=== PATIENT | male | born 1935 | race Caucasian/White ===

== ENCOUNTER 2017-11-13 18:11 | Emergency (ER) | payer MEDICARE, OTHER ==
[2017-11-13 19:52] VITALS: BP 191/66
[2017-11-13] MEDS ORDERED: Sodium Phosphate,Monobasic/Sodium Phosphate,Dibasic Enema 133 ML Bottle RECTAL ONE (20:39)
--- NOTE | 2017-11-13 20:52 | EDM.PDOC ---
ED HPI GENERAL MEDICAL PROBLEM - General Chief Complaint: General Stated Complaint: CONSTIPATED Time Seen by Provider: 11/13/17 20:20 Source of Information: Reports: Patient, Family (Daughter), Old Records, RN Notes Reviewed History Limitations: Reports: No Limitations - History of Present Illness INITIAL COMMENTS - FREE TEXT/NARRATIVE: Brought by daughter Chief complaint Abdominal pain and constipation History of present illness 81-year-old male who lives independently, had some abdominal pain about 3 weeks ago, thought to be "food poisoning" that started several hours after eating a cardona breakfast sandwich from a fast food restaurant. Was seen in the office for this and again more recently, had some recurrence of abdominal pain and was treated with antibiotics for something that felt like a "touch of food poisoning" according to the patient. He is almost complete his antibiotics. Last bowel movement that was normal was 2 days ago and since then he's only been able to pass small amounts of hard stool. He feels bloated feels a need to pass stool but is only able to pass small amounts. No nausea or vomiting He still able to eat and did have breakfast and lunch today. Does feel a bit bloated Feels like he has to urinate as well and is unable to pass more than a small amounts of urine Bladder scan done by nursing staff here did not show any retained urine. No history of ongoing constipation Did use a suppository at home in the afternoon and use magnesium citrate yesterday neither with any benefit. Lower Abdomen Pain Score (Numeric/FACES): 10 - Related Data Allergies Allergy/AdvReac Type Severity Reaction Status Date / Time No Known Allergies Allergy Verified 09/27/16 12:05 Home Meds: Home Meds Candesartan [Atacand] 32 mg PO DAILY 05/24/15 [History] Clopidogrel Bisulfate [Clopidogrel] 75 mg PO DAILY 05/24/15 [History] Doxazosin Mesylate [Cardura] 8 mg PO DAILY 05/24/15 [History] Furosemide [Lasix] 20 mg PO ASDIRECTED 05/24/15 [History] Insulin Glarg,Human.Rec.Analog [Lantus Solostar] 24 unit SQ BEDTIME 05/24/15 [ History] Insulin Lispro [Humalog] 100 unit SQ BID 05/24/15 [History] Metoprolol Succinate [Toprol Xl] 50 mg PO DAILY 05/24/15 [History] Nitroglycerin [Nitrostat] 0.4 mg SL ASDIRECTED PRN 05/24/15 [History] hydrALAZINE HCl [Hydralazine HCl] 25 mg PO TID 05/24/15 [History] Aspirin [Adult Low Dose Aspirin EC] 81 mg PO DAILY 05/04/16 [History] Azithromycin [Zithromax] 250 mg PO ASDIRECTED 09/26/16 [History] Allopurinol [Zyloprim] 300 mg PO DAILY 11/13/17 [History] Diltiazem [Diltiazem XR] 180 mg PO DAILY 11/13/17 [History] Past Medical History Cardiovascular History: Reports: CAD, Stents Respiratory History: Reports: Sleep Apnea Other Respiratory History: CPAP noc Genitourinary History: Reports: Renal Calculus Musculoskeletal History: Reports: Gout Endocrine/Metabolic History: Reports: Diabetes, Type II, IDDM - Past Surgical History Male Surgical History: Reports: Renal Calculus Social & Family History - Tobacco Use Smoking Status *Q: Never Smoker Second Hand Smoke Exposure: Yes - Caffeine Use Caffeine Use: Reports: Coffee - Alcohol Use Days Per Week of Alcohol Use: 1 Number of Drinks Per Day: 2 Total Drinks Per Week: 2 - Recreational Drug Use Recreational Drug Use: No ED ROS GENERAL - Review of Systems Review Of Systems: See Below Constitutional: Denies: Fever, Chills, Decreased Appetite, Weight Loss HEENT: Reports: No Symptoms Respiratory: Reports: No Symptoms Cardiovascular: Reports: No Symptoms Endocrine: Reports: No Symptoms GI/Abdominal: Reports: Abdominal Pain (Especially the right lower quadrant), Constipation, Other (Bloating). Denies: Diarrhea, Decreased Appetite, Nausea, Vomiting : Reports: Other (Difficulty urinating urine decreased). Denies: Dysuria, Flank Pain Musculoskeletal: Reports: No Symptoms Skin: Reports: No Symptoms Neurological: Reports: No Symptoms Psychiatric: Reports: No Symptoms Hematologic/Lymphatic: Reports: No Symptoms ED EXAM, GI/ABD - Physical Exam Exam: See Below Exam Limited By: Other (Large body habitus) General Appearance: Alert, Mild Distress, Other (Appears well, elevated blood pressure but normal temperature and pulse, no difficulty speaking or breathing) Eyes: Bilateral: Normal Appearance Ears: Normal External Exam, Hearing Grossly Normal Nose: Normal Inspection Throat/Mouth: Normal Inspection, Normal Oropharynx Head: Atraumatic, Normocephalic Neck: Normal Inspection, Supple Respiratory/Chest: No Respiratory Distress, Lungs Clear, No Accessory Muscle Use Cardiovascular: Normal Peripheral Pulses, Regular Rate, Rhythm, Bradycardia ( Mild bradycardia rate 58) GI/Abdominal Exam: Normal Bowel Sounds, Soft, Distended (Mildly, not rigid), Tender (Right lower quadrant, diffuse). No: Guarding, Rigid, Rebound (Male) Exam: No Hernia. No: Inguinal Lymphadenopathy Rectal (Males) Exam: Fecal Impaction, Hemorrhoids (Bulging perirectal hemorrhoids) Back Exam: Normal Inspection Extremities: Normal Inspection Course - Vital Signs Last Recorded V/S: Last Vital Signs Temp 35.9 C 11/13/17 19:51 Pulse 58 L 11/13/17 19:51 Resp 20 11/13/17 19:51 BP 191/66 H 11/13/17 19:51 Pulse Ox 98 11/13/17 19:51 - Orders/Labs/Meds Orders: Active Orders 24 hr Category Date Time Status Blood Glucose Check, Bedside [] ONETIME Care 11/13/17 19:56 Inactive Meds: Medications Discontinued Medications Generic Name Dose Route Start Last Admin Trade Name Freq PRN Reason Stop Dose Admin Sodium Biphosphate/Sodium Phosphate 133 ml 11/13/17 20:39 11/13/17 21:02 Fleet Enema RECTAL 11/13/17 20:40 133 ml ONETIME ONE Administration - Re-Assessments/Exams Free Text/Narrative Re-Assessment/Exam: 11/13/17 20:52 81-year-old male with difficulties passing stool and urine and some right lower quadrant abdominal pain Differential diagnosis includes constipation, appendicitis, reassess and other causes of partial bowel obstruction. Enema 11/13/17 21:56 Complete resolution of his symptoms with passage of a large amount of stool Lab tests canceled Departure - Departure Time of Disposition: 21:54 Disposition: Admitted As Inpatient 66 Condition: Good Clinical Impression: Constipation, unspecified Qualifiers: Constipation type: unspecified constipation type Qualified Code(s): K59.00 - Constipation, unspecified - Discharge Information Instructions: Constipation, Adult Referrals: Rishi Kitchen Sr, MD [Primary Care Provider] - Forms: ED Department Discharge Additional Instructions: Please make an appointment with Dr. Kitchen to discuss if you have ongoing problems with constipation. Do not make any changes in medication at this time without discussing it with him. However you can stop taking the last tablet of your current medication - My Orders Last 24 Hours: My Active Orders 11/13/17 19:56 Blood Glucose Check, Bedside [RC] ONETIME - Assessment/Plan Last 24 Hours: My Active Orders 11/13/17 19:56 Blood Glucose Check, Bedside [RC] ONETIME
== END 2017-11-13 22:18 | disposition home or self-care (01) ==
LOC: JP.ED 18:11
DX: K59.00 Constipation, unspecified (principal); E11.9 Type 2 diabetes mellitus without complications; Z79.4 Long term (current) use of insulin; Z79.82 Long term (current) use of aspirin; Z79.899 Other long term (current) drug therapy
CPT/HCPCS: 51798; 82962; 99284; A9270

== ENCOUNTER 2021-04-18 09:23 | Emergency (ER) | payer OTHER, MEDICARE ==
[2021-04-18 09:41] VITALS: BP 163/64; PULSE 52
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
--- NOTE | 2021-04-18 10:09 | CT ---
Head wo Cont CLINICAL HISTORY: Head injury COMPARISON: None TECHNIQUE: Transverse scans were obtained from the base of the skull through the vertex without IV contrast on a multislice, multidetector CT scanner. The prescription dose FINDINGS: No focal abnormal parenchymal density is identified. There is no mass effect, hemorrhage, or extraaxial collection. The basal cisterns and sulci over the convexities are prominent. The ventricles are normal for age. There is a right to scalp laceration and swelling IMPRESSION: Age-related atrophy. No acute intracranial process Right scalp hematoma/laceration
--- NOTE | 2021-04-18 10:13 | CR ---
Shoulder Comp Rt, Chest 2V CLINICAL HISTORY: Injury FINDINGS: There is no acute fracture. There is superior placement of the clavicle at the AC joint. There is some spurring. Glenohumeral joint appears intact. Impression: AC joint dislocation CHEST: 2 view CLINICAL HISTORY:Injury, dyspnea COMPARISON:2008 FINDINGS: The heart size, pulmonary vascularity and hilar structures are normal. No infiltrate effusion or pneumothorax is seen. There are atherosclerotic changes in the aorta. There is mild deformity of the right seventh rib. Chronology is uncertain IMPRESSION: No acute cardiopulmonary process. Mild deformity of the right seventh rib. Chronology is uncertain
[2021-04-18] MEDS ORDERED: Diphtheria,Pertussis(Acell),Tetanus Vaccine 0.5 ML Syringe IM ONE (10:53)
[2021-04-18] MEDS ORDERED: Bacitracin Oint 1 GM U/D Packet TOP ONE (10:53)
== END 2021-04-18 11:45 | disposition home or self-care (01) ==
LOC: JP.ED 09:23
DX: S43.101A Unspecified dislocation of right acromioclavicular joint, initial encounter (principal); S01.01XA Laceration without foreign body of scalp, initial encounter; S60.511A Abrasion of right hand, initial encounter; S60.512A Abrasion of left hand, initial encounter; I25.10 Atherosclerotic heart disease of native coronary artery without angina pectoris; E11.9 Type 2 diabetes mellitus without complications; M10.9 Gout, unspecified; V43.63XA Car passenger injured in collision with pick-up truck in traffic accident, initial encounter; Z79.82 Long term (current) use of aspirin; Z79.899 Other long term (current) drug therapy; Z23 Encounter for immunization
CPT/HCPCS: 70450; 70450-26; 71046; 71046-26; 73030-26-RT; 73030-RT; 90471; 90715; 99283; 99285-25